=== PATIENT | female | born 1990 | race Caucasian/White ===

== ENCOUNTER 2024-05-23 16:28 | Emergency (ER) | payer MEDICAID ==
[~2024-05-23] VITALS: Ht 162.6 cm; Wt 52.2 kg
[2024-05-23 18:00] VITALS: BP 109/66; TEMP 97.9; O2SAT 99
== END 2024-05-23 19:18 | disposition home or self-care (01) ==
LOC: ER 16:39
DX: S63.601A Unspecified sprain of right thumb, initial encounter (principal); S99.912A Unspecified injury of left ankle, initial encounter; W01.0XXA Fall on same level from slipping, tripping and stumbling without subsequent striking against object, initial encounter; Y93.89 Activity, other specified; Y92.091 Bathroom in other non-institutional residence as the place of occurrence of the external cause; Y99.8 Other external cause status
CPT/HCPCS: 73130-TC; 73610-TC